=== PATIENT | female | born 1965 ===

== ENCOUNTER 2017-04-26 07:24 | Day surgery (SDC) | payer OTHER ==
[2017-04-26 08:40] VITALS: BMI 28.3
[2017-04-26] MEDS ORDERED: Propofol 10 mg/ml Inj (20 ML) ONE (09:30)
[2017-04-26] MEDS ORDERED: Lidocaine Hydrochloride 5 ML INJ ONE (09:31)
[2017-04-26] MEDS ORDERED: Lactated Ringer's 500 ML IV SCH (09:45)
[2017-04-26] MEDS ORDERED: Lactated Ringer's 500 ML IV ONE ×2 (10:10)
--- NOTE | 2017-04-26 10:17 | CP.SDSHP ---
Same Day Surgery H & P - History Proposed Procedure: EGD with biopsy Pre-Op Diagnosis: reflux and dysphagia - Previous Medical/Surgical History Cardiac: Hypertension Comments: Diverticulitis Previous Surgical History: c section, Tubal ligation, bladder sling - Allergies Allergies: Allergies No Known Allergies Allergy (Verified 11/04/16 16:46) - Current Medications Current Medications: reviewed, per reconciliation - Physical Exam General Appearance: wdwn nad Vital Signs: Vital Signs 04/26/17 08:42 Temperature 97.5 F L Pulse Rate 58 L Respiratory 17 Rate Blood Pressure 117/93 H O2 Sat by Pulse 99 Oximetry Mental Status: Alert & Oriented x3 Heart: WNL Lungs: WNL GI: WNL - {Optional Preform as Required} Abdomen: WNL - Impression Impression: dysphagia Pt. Evaluated Today:Candidate for Anesthesia & Procedure: Yes - Date & Time Date: 04/26/17 Time: 10:09 Short Stay Discharge - Short Stay Discharge Admitting Diagnosis/Reason for Visit: ESOPHAGEAL REFLUX Disposition: HOME/ ROUTINE
[2017-04-26 10:45] VITALS: TEMP 97.3; O2SAT 100
[2017-04-26 11:01] VITALS: BP 102/48; PULSE 66; RESP 14
== END 2017-04-26 11:15 | disposition home or self-care (01) ==
LOC: C.ENDO 07:24
PROVIDERS: ATTEND Internal Medicine Gastroenterology
DX: K21.9 Gastro-esophageal reflux disease without esophagitis (principal); R13.10 Dysphagia, unspecified; I10 Essential (primary) hypertension
CPT/HCPCS: 43239; 88305; J2704; J3010; J7120

== ENCOUNTER 2018-06-06 06:23 | Day surgery (SDC) | payer OTHER ==
--- NOTE | 2018-06-06 09:23 | CP.SDSHP ---
Same Day Surgery H & P - History Proposed Procedure: colonoscopy Pre-Op Diagnosis: history of colon polyp - Previous Medical/Surgical History Cardiac: Hypertension - Allergies Allergies: Allergies No Known Allergies Allergy (Verified 06/06/18 07:26) - Current Medications Current Medications: reviewed, see reconciliation - Physical Exam General Appearance: wdwn nad Vital Signs: Vital Signs 06/06/18 07:27 Temperature 98 F Pulse Rate 57 L Respiratory 16 Rate Blood Pressure 115/63 O2 Sat by Pulse 98 Oximetry Mental Status: Alert & Oriented x3 Heart: WNL Lungs: WNL GI: WNL - {Optional Preform as Required} Abdomen: WNL - Impression Impression: polyp surveillance Pt. Evaluated Today:Candidate for Anesthesia & Procedure: Yes - Date & Time Date: 06/06/18 Time: 09:22 Short Stay Discharge - Short Stay Discharge Admitting Diagnosis/Reason for Visit: CONSTIPATION Disposition: HOME/ ROUTINE
[2018-06-06] MEDS ORDERED: Lidocaine Hydrochloride 5 ML INJ ONE (09:28)
[2018-06-06] MEDS ORDERED: Propofol 10 mg/ml Inj (20 ML) ONE ×2 (09:28→09:38)
[2018-06-06] MEDS ORDERED: Lactated Ringer's 1,000 ML IV ONE ×2 (09:29)
[2018-06-06 14:56] VITALS: TEMP 96.7
[2018-06-06 15:01] VITALS: BP 108/52; PULSE 54; RESP 12; O2SAT 97
== END 2018-06-06 10:55 | disposition home or self-care (01) ==
LOC: C.ENDO 06:23
PROVIDERS: ATTEND Internal Medicine Gastroenterology
DX: K57.30 Diverticulosis of large intestine without perforation or abscess without bleeding (principal); K59.00 Constipation, unspecified; Z86.010 Personal history of colon polyps; K64.0 First degree hemorrhoids; I10 Essential (primary) hypertension
CPT/HCPCS: 45378; J2704; J7120